=== PATIENT | female | born 1940 | race Caucasian/White ===

== ENCOUNTER 2024-10-26 10:16 | Emergency (ER) | payer MEDICARE ==
[2024-10-26] VITALS (8 sets, daily range): BP systolic 142–188; BP diastolic 78–94
[~2024-10-26] VITALS: Ht 177.8 cm; Wt 65.7 kg
[~2024-10-26 10:16] MED LIST: CHERATUSSIN PO; TRAMADOL HYDROC50 M1 PO; ZOFRAN4 MG/TAB PO
[2024-10-26] MEDS ORDERED: traMADol HCL 50 MG/TAB PO ONE (11:40)
[2024-10-26 13:48] LABS: BASO% 0.1 % (0-3); EOS% 0.2 % (0-8); IMMATURE GRANULOCYTES 0.3 % (0.0-5.0); LYMPH% 8.4 % (15-41); MEAN CELL VOLUME 88.6 fL CALC (80.0-100.0); MEAN CORPUSCULAR HGB 29.3 pG CALC (26.0-32.0); MEAN CORPUSCULAR HGB CONC 33.1 g/dL CAL (32.0-36.0); MONO% 4.2 % (2-13); NEUT# 7.73 thou/uL (2.00-7.15); NEUT% 86.8 % (42-76); RED BLOOD COUNT 5.43 mill/uL (4.20-5.60); RED CELL DISTRI WIDTH 14.1 % (11.5-15.5)
[2024-10-26 13:50] LABS: HEMATOCRIT 48.1 % (37.0-47.0); HEMOGLOBIN 15.9 g/dl (12.0-16.0)
[2024-10-26 14:02] LABS: ALBUMIN 3.9 g/dL (3.2-5.0); BILIRUBIN, TOTAL 1.1 mg/dL (0.02-1.3); CREATININE 0.7 mg/dL (0.5-1.0); POTASSIUM 3.2 mmol/l (3.5-5.1); TOTAL PROTEIN 7.1 g/dL (6.3-8.2)
== END 2024-10-26 15:25 | disposition short-term general hospital (02) ==
LOC: ED 10:16
PROVIDERS: Emergency Medicine
DX: S06.6X0A Traumatic subarachnoid hemorrhage without loss of consciousness, initial encounter (principal); R40.2412 Glasgow coma scale score 13-15, at arrival to emergency department; M25.551 Pain in right hip; I10 Essential (primary) hypertension; E78.5 Hyperlipidemia, unspecified; I65.29 Occlusion and stenosis of unspecified carotid artery; W19.XXXA Unspecified fall, initial encounter; Y92.000 Kitchen of unspecified non-institutional (private) residence as the place of occurrence of the external cause; Z86.73 Personal history of transient ischemic attack (TIA), and cerebral infarction without residual deficits; Z79.82 Long term (current) use of aspirin; Z79.02 Long term (current) use of antithrombotics/antiplatelets